=== PATIENT | male | born 1965 | race Caucasian/White ===

== ENCOUNTER → 2018-02-12 | Outpatient (REF) | payer BC, OTHER | LOC: M SFHCPLAZ 17:26 | DX: L81.4 Other melanin hyperpigmentation (principal) | CPT/HCPCS: 88305 ==

== ENCOUNTER → 2020-02-17 | Outpatient (REF) | payer OTHER, BC | LOC: M LAB REF 14:18 | PROVIDERS: ATTEND Physician Assistant | DX: C44.321 Squamous cell carcinoma of skin of nose (principal) ==

== ENCOUNTER → 2020-02-28 | Outpatient (REF) | payer OTHER, MEDICAID | LOC: M LAB REF 09:13 | PROVIDERS: ATTEND Dermatology | DX: C44.321 Squamous cell carcinoma of skin of nose (principal); L57.0 Actinic keratosis; L57.8 Other skin changes due to chronic exposure to nonionizing radiation ==

== ENCOUNTER → 2022-11-22 | Outpatient (CLI) | payer OTHER, BC | LOC: M WUC 08:48 | PROVIDERS: ATTEND Internal Medicine Rheumatology | DX: Z53.9 Procedure and treatment not carried out, unspecified reason (principal) ==

== ENCOUNTER → 2022-11-23 | Outpatient (CLI) | payer OTHER, BC | LOC: M WUC 08:02 | PROVIDERS: ATTEND Internal Medicine Rheumatology | DX: M54.2 Cervicalgia (principal); M54.50 Low back pain, unspecified ==

== ENCOUNTER → 2023-08-28 | Outpatient (REF) | payer OTHER, MEDICAID | LOC: M SFHCDERM 17:10 | PROVIDERS: ATTEND Physician Assistant | DX: L57.0 Actinic keratosis (principal); D04.62 Carcinoma in situ of skin of left upper limb, including shoulder ==

== ENCOUNTER → 2023-11-02 | Outpatient (CLI) | payer OTHER, MEDICAID | LOC: M WUC 08:43 | PROVIDERS: ATTEND Family Medicine | DX: J44.9 Chronic obstructive pulmonary disease, unspecified (principal) ==

== ENCOUNTER → 2024-10-29 | Outpatient (REF) | payer OTHER, MEDICAID | LOC: M SFHCDERM 17:51 | PROVIDERS: ATTEND Physician Assistant | DX: C44.92 Squamous cell carcinoma of skin, unspecified (principal) ==

== ENCOUNTER 2025-01-22 10:49 | Emergency (ER) | payer MEDICAID, OTHER ==
[~2025-01-22] VITALS: Ht 177.8 cm; Wt 87.4 kg
[2025-01-22 10:55] VITALS: TEMP 98.2
[2025-01-22 13:20] LABS: BASO # 0.1 10^3/uL (0.0-0.2); BASO % 0.9 % (0.0-1.0); EOS # 0.1 10^3/uL (0.0-0.5); EOS % 2.1 % (0.0-3.0); LYMPH # 1.8 10^3/uL (1.5-5.0); LYMPH % 27.8 % (24.0-44.0); MONO # 1.0 10^3/uL (0.0-0.8); MONO % 14.7 % (2.0-8.0); NEUTROPHILS # 3.6 10^3/uL (1.5-8.5); NEUTROPHILS % 54.2 % (36.0-66.0); PLATELET COUNT, AUTOMATED 145 10^3/uL (150-450)
[2025-01-22] MEDS: KETOROLAC 30 MG/ML 1 ML VIAL IV ONE (13:44)
[2025-01-22] MEDS ORDERED: VALI5TAB PO (14:24)
[2025-01-22 14:29] LABS: CALCIUM LEVEL 8.7 MG/DL (8.3-10.6); CARBON DIOXIDE LEVEL 28 MMOL/L (20-31); CHLORIDE LEVEL 101 MMOL/L (98-107); CREATININE FOR GFR 0.70 MG/DL (0.70-1.30); GLOMERULAR FILTRATION RATE > 90.0 (>49); POTASSIUM SERUM 4.2 MMOL/L (3.5-5.1); SODIUM LEVEL 138 MMOL/L (136-145)
[2025-01-22 14:30] VITALS: BP 148/91; O2SAT 97
== END 2025-01-22 14:35 | disposition home or self-care (01) ==
LOC: M ED 10:49
DX: M54.81 Occipital neuralgia (principal); Z79.899 Other long term (current) drug therapy
CPT/HCPCS: 70450; 80048; 85025; 96374; 99284; J1885